=== PATIENT | male | born 1975 | race Caucasian/White ===

== ENCOUNTER 2021-05-07 12:24 | Emergency (ER) | payer BC ==
[~2021-05-07] VITALS: Ht 180.3 cm; Wt 83.9 kg
[~2021-05-07 12:24] MED LIST: AMBIEN 5 MG TABL5 M1 PO; CLEOCIN HCL300 MG PO; HYDROCODON-ACE1 EAC7 PO; IBUPROFEN 800800 M1 PO; MOBIC7.5 MG PO; NORCO 5-325 TA1 EAC1 PO; NORCO 5-325 TA1 EACH PO; PENICILLIN V P500 MG PO; REMERON15 MG PO; ROBAXIN 750 MG750 M1 PO
[2021-05-07] MEDS ORDERED: SUBOXONE 2 MG-1 EAC1 (13:13)
[2021-05-07] MEDS ORDERED: AUGMENTIN 875-1 EACH PO (14:27)
[2021-05-07 14:54] VITALS: BP 133/74
== END 2021-05-07 14:54 | disposition home or self-care (01) ==
LOC: M.ERS 12:24
DX: K02.9 Dental caries, unspecified (principal); F17.210 Nicotine dependence, cigarettes, uncomplicated